=== PATIENT | female | born 1965 | race Caucasian/White ===

== ENCOUNTER 2016-12-23 04:32 | Observation (INO) | payer OTHER ==
--- NOTE | ~2016-12-23 | CN ---
Consultation Report [facility] [address] [place]. [address] NAME: ADRIANA ALONSO : 69 STATUS : ADM Humaira PAT#: [id number] AGE: 51 ADM/REG DATE : 12/23/16 MR#: [id number] REPORT SERV DATE: 12/23/16 DICTATED BY: SHERYL MONTELONGO DATE: 12/23/16 REPORT STATUS : Draft TRANSCRIBED BY: RASHEED DATE: 12/23/16 INPATIENT CONSULTATION NOTE DATE OF CONSULTATION: 12/23/2016 REASON FOR CONSULTATION: Possible UTI after surgery. HISTORY OF PRESENT ILLNESS: Ms Alonso is a 51-year-old white female, status post right laparoscopic nephrectomy on 12/14/2016 along with a hysterectomy by Dr. Siegel. She was discharged home last Saturday and actually had a great 24 hours, in fact, she may have gotten too active because on she began to experience increased right abdominal discomfort and bloating. She presented to the emergency department on 12/21/2016 and had a thorough evaluation including a CT of the abdomen and pelvis, which revealed postoperative changes in the area of the right renal fossa, but no other abnormal findings. She was discharged home from the emergency department, however, she did return late yesterday with persistent abdominal pain and failure to thrive. Urinalysis was infected appearing and she was started on Zosyn and vancomycin. Her urination has been normal except for a very small amount of hematuria, otherwise, there are no focal findings. She was admitted to the Hospitalist Service and Urology was consulted to assist with management of this patient. PAST MEDICAL HISTORY: Right renal cell carcinoma, status post nephrectomy; diabetes; morbid obesity; tobacco abuse; COPD; obstructive sleep apnea; chronic diastolic heart failure; and hypothyroidism. HOME MEDICATIONS: These have been reviewed and will not be repeated in the course of the dictation. ALLERGIES: NO KNOWN DRUG ALLERGIES. FAMILY HISTORY: No urologic issues. REVIEW OF SYSTEMS: Thorough review of systems has been reviewed by me, and if not noted to be positive in the history of present illness or past medical history, negative. SOCIAL HISTORY: . Smokes cigarettes. Denies illicit drug abuse. PHYSICAL EXAMINATION: Performed with Cayden as spanish medical interpreter. VITAL SIGNS: The patient is afebrile. Vital signs are stable. HEENT: Normocephalic and atraumatic. Eyes are anicteric. Nares are patent. Oropharynx is clear. NECK: Supple. HEART: Regular rate and rhythm. Consultation Report [place] [id number] [place]. [address] NAME: ADRIANA ALONSO : 69 STATUS : ADM Humaira PAT#: [id number] AGE: 51 ADM/REG DATE : 12/23/16 MR#: [id number] REPORT SERV DATE: 12/23/16 DICTATED BY: SHERYL MONTELONGO DATE: 12/23/16 REPORT STATUS : Draft TRANSCRIBED BY: MODL DATE: 12/23/16 LUNGS: Clear. ABDOMEN: Obese and soft. No rebound or guarding. Well-healing postoperative incisions, which are all open to air. She does have a very small area on her most left lateral incision which has a bit, but there is certainly no erythema or wound discharge. No CVA tenderness. No skin changes. INTEGUMENT: Warm. MUSCULOSKELETAL: Moves all extremities well. NEUROLOGIC: No focal deficits. PSYCHIATRIC: Pleasant and appropriate. LABS: Creatinine 1.07 and glucose 161. White blood cell count 13,200 and hematocrit 43.7. Urinalysis 178 white blood cells, 47 red blood cells, moderate leukocyte esterase, negative nitrite. Urine culture and blood culture are pending. The patient has been started on Zosyn and vancomycin, and also given a dose of Rocephin in the emergency department. ASSESSMENT: 1. Status post right nephrectomy for renal cell cancer. 2. Possible urinary tract infection. PLAN: The patient has been admitted to the hospital on the Hospitalist Service. I agree with empiric antibiotics while urine culture is pending. I reviewed the CT results and they do not appear to reveal any abnormalities additionally. Clinically, she states that she is better since her arriving a little over 12 hours ago, so I think conservative management is in line. We will follow up her urine culture and blood cultures, and Dr. Gautam will be back in the morning. RAC/LEEL Sheryl Montelongo M.D. / [id number] CC: MD Leopoldo Liu II, M.D. Jeffrey K. Mullins, MD
--- NOTE | ~2016-12-23 | DS ---
Discharge Summary [facility] [address] [place]. [address] NAME: ADRIANA ALONSO : 69 STATUS : DIS Humaira PAT#: [id number] AGE: 51 ADM/REG DATE : 12/23/16 MR#: [id number] REPORT SERV DATE: 12/25/16 DICTATED BY: TONE JACQUES DATE: 12/24/16 REPORT STATUS : Draft TRANSCRIBED BY: MODL DATE: 12/24/16 ADMISSION DATE: 12/23/2016 DISCHARGE DATE: 12/24/2016 REASON FOR ADMISSION: Abdominal pain. HISTORY OF PRESENT ILLNESS: Please refer to Dr. Fabian's history and physical dated 12/23/2016 for complete details regarding the patient's admission. In brief, the patient was admitted to the Hospitalist Service for observation for abdominal pain and urinary tract infection. HOSPITAL COURSE: The patient had an uncomplicated hospital course. She had a right radical nephrectomy by Dr. Gautam approximately on 12/14/2016, did very well postoperatively, she went home, but did not fill her prescriptions due to the outside pharmacy not having it stocked and returned to the ER with complaints of abdominal pain and urinary symptoms. Urinalysis was obtained, which grew out Klebsiella urinary tract infection. She had a CT scan of her abdomen and pelvis done on 12/22/2016 without any contrast, which showed evidence for recent nephrectomy on the right side. There are some minimal fluid changes in the right retroperitoneum. No evidence of definitive abscess. However, there is small fluid in the retroperitoneum. She presented with white blood cell count of initially 16,000 on 12/21/2016 and then went down to 13,000 on 12/23/2016. Lactate on admission was 1.4. Blood cultures were obtained, were no growth to date. The patient was started on vancomycin and Zosyn. Dr. Ramos was consulted, covering Dr. Gautam and recommended continuing IV antibiotics. The patient has been afebrile throughout the hospitalization. I assumed care of this patient on the day of discharge. Urine culture came back as being positive for Klebsiella, which was rand susceptible to the antibiotics listed. The patient was complaining of some abdominal pain. On reviewing her CAT scan, she does have considerable amount of gas and stool in her abdomen. Her white count is hovering about 14,000, but the patient is very nontoxic appearing and is requesting to go home. We will give her some laxatives and discharge her home in a stable condition to follow up Dr. Siegel and Dr. Gautam along with a prescription for Ceftin for a urinary tract infection. DISCHARGE DIAGNOSES: 1. Abdominal pain, could be secondary to gas and constipation. 2. Klebsiella urinary tract infection. 3. Recent radical nephrectomy by Dr. Gautam on 12/14/2016. 4. 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 PROCEDURES: Include CT scan of the abdomen and pelvis, consultation by Dr. Ramos. DISCHARGE MEDICATIONS: Include Ceftin 500 mg twice a day, estradiol 0.5 mg daily, gabapentin 1200 mg three times a day, insulin glargine 100 units subcutaneously twice a day, spironolactone 50 mg daily, Synthroid 25 mg every morning, Pulmicort daily, Humalog insulin daily, Percocet p.r.n. pain, Colace, Zanaflex, Lasix 20 mg p.r.n., Brovana noncompliant with Discharge Summary [address] [address] NAME: ADRIANA ALONSO : 69 STATUS : DIS Humaira PAT#: [id number] AGE: 51 ADM/REG DATE : 12/23/16 MR#: [id number] REPORT SERV DATE: 12/25/16 DICTATED BY: TONE JACQUES DATE: 12/24/16 REPORT STATUS : Draft TRANSCRIBED BY: MODL DATE: 12/24/16 and Valium 10 mg p.r.n. anxiety. The patient will follow up Dr. Siegel and Dr. Gautam in the next week or two. CHET/RASHEED Tone Jacques MD / [id number] CC: MD Leopoldo Liu II, M.D.
--- NOTE | ~2016-12-23 | HP ---
History And Physical [facility] [address] [place]. [address] NAME: ADRIANA ALONSO : 69 STATUS : ADM Humaira PAT#: [id number] AGE: 51 ADM/REG DATE : 12/23/16 MR#: [id number] REPORT SERV DATE: 12/23/16 DICTATED BY: USAMA ABURTO DATE: 12/23/16 REPORT STATUS : Draft TRANSCRIBED BY: MODNora DATE: 12/23/16 DATE OF ADMISSION: 12/23/2016 CHIEF COMPLAINT: Abdominal pain. Recent nephrectomy. HISTORY OF PRESENT ILLNESS: This is a 51-year-old female, who presents to the emergency room at [facility] with the above-mentioned complaint. History is obtained from the patient, reviewing data available on the [email or web address] system, and speaking with the ER physician as well. According to the patient and available data, she had a right nephrectomy done by Dr. Gautam on 12/14/2016 for a right renal mass. She was doing well postoperatively but yesterday, she had presented to this emergency room and was diagnosed with urinary tract infection. She also had pain in the incision area where she had the surgery. She was advised inpatient IV antibiotic treatment but left against medical advice because she had something important to do. She went home, did not fill her prescription due to the outside pharmacy not having it in stock, but returns today with similar complaints of abdominal pain and urinary symptoms. She once again had urinary tract infection along with leukocytosis and the abdominal pain in the incisional area. Hospitalist Service is asked to admit her for further evaluation and treatment. At the time of my evaluation, she denied any chest pain, palpitations, or orthopnea. She had no cough, hemoptysis, night sweats, or weight loss. She has not had any recent falls or loss of consciousness. No history of recent fevers, chills, nausea, vomiting, or diarrhea. She denied any hematemesis or hematochezia. No other history of recent travel or exposures other than those mentioned above. PAST MEDICAL HISTORY: Significant for history of right renal mass for which she underwent nephrectomy by Dr. Gautam on 12/14/2016. She has a history of COPD, obstructive sleep apnea, and obesity. She also has chronic diastolic heart failure and hypothyroidism. SOCIAL HISTORY: She has about 70-to-80 pack-a-year history of smoking, continues to do so. Denies any alcohol use or recreational drug use. She used to work in factories. FAMILY HISTORY: Noncontributory. MEDICATIONS: At home were reviewed by me in the chart today and reordered by me. REVIEW OF SYSTEMS: As in history of present illness. All other systems were reviewed in detail and quite unremarkable. PHYSICAL EXAMINATION: GENERAL: This is a very pleasant 51-year-old obese patient, who is not in any acute distress. She does have abdominal pain at the site of the surgery. She is alert, awake, oriented to time, place, and person. History And Physical [address] [place]. [address] NAME: ADRIANA ALONSO : 69 STATUS : ADM Humaira PAT#: [id number] AGE: 51 ADM/REG DATE : 12/23/16 MR#: [id number] REPORT SERV DATE: 12/23/16 DICTATED BY: USAMA ABURTO DATE: 12/23/16 REPORT STATUS : Draft TRANSCRIBED BY: RASHEED DATE: 12/23/16 HEENT: Pupils are equal, reacting to light and accommodating. External ocular muscles are intact. Membranes are moist and pink. Sclerae are nonicteric. NECK: Supple with no jugular venous distention, lymphadenopathy, or thyromegaly. LUNGS: Clear to auscultation with no wheezes, rubs, or crackles. HEART: Heart sounds were regular with no murmurs, rubs, or gallops. ABDOMEN: Soft, nontender. There is pain in the incisional area. Bowel sounds are present. EXTREMITIES: Showed no cyanosis, clubbing, or edema. NEUROLOGIC: Grossly intact. No focal sensory or motor deficits. Higher functions appeared intact. VITAL SIGNS: Her temperature was 97 degrees Fahrenheit, pulse 71, respirations 20 a minute, blood pressure was 135/67, and oxygen saturations were 96%, breathing 2 L of oxygen via nasal cannula. LABORATORY DATA: Reviewed on the [email or web address] system showed a normal CMP with a blood glucose of 161. Lactate was 1.4 today. [place] [address], hemoglobin 13.5 with a hematocrit of 43.7, and platelet count was 320,000. Urinalysis showed large blood, moderate leukocyte esterase. There were 178 wbc's and rare bacteria. Films of the chest x- ray were reviewed by me on the PACS today and interpreted by me. There is normal bony architecture with no lobar consolidations, pleural effusions seen in the lung windows. Films of the CT scan of her abdomen and pelvis done on 12/21/2016 were reviewed by me on the PACS today and official radiology comments were also reviewed. There is a small fluid collection postoperatively after her nephrectomy. A 12-lead EKG done in emergency room was reviewed and interpreted by me. There is sinus rhythm with premature ventricular complex. Rate is about 72 per minute. IMPRESSION: 1. Abdominal pain. 2. Urinary tract infection. 3. Leukocytosis. 4. Right nephrectomy for renal mass done by Dr. Gautam. 5. Diabetes mellitus type 2. 6. Chronic obstructive pulmonary disease. 7. Hypothyroidism. 8. Obstructive sleep apnea. 9. Chronic diastolic heart failure. 10.Obesity. 11.Tobacco use. PLAN: We will admit Ms. Alonso to the Hospitalist Service for a 24-hour observation period. After cultures are drawn, we will start her on empiric IV antibiotics and cover her for nosocomial infections as well. Meanwhile, we will start her on NovoLog, given subcutaneously per sliding scale for blood sugar control as well. We will check her thyroid function and meanwhile continue her replacement therapy. We will also be checking her A1c. We will offer pain control with morphine intravenously on an as needed basis. She will be on IV fluids for volume replacement and the bronchodilator treatments and supplemental oxygen therapy as well. She will be on unfractionated heparin for DVT prophylaxis while here. History And Physical [address] [address] NAME: ADRIANA ALONSO : 69 STATUS : ADM Humaira PAT#: [id number] AGE: 51 ADM/REG DATE : 12/23/16 MR#: [id number] REPORT SERV DATE: 12/23/16 DICTATED BY: USAMA ABURTO DATE: 12/23/16 REPORT STATUS : Draft TRANSCRIBED BY: MODL DATE: 12/23/[address] Gautam to consult on her and advice regarding the abdominal pain. I have discussed above plans with the patient and her questions were answered. She is agreeable to the above recommendations. Hospitalist Service will be following her during her stay here. /RASHEED Usama Aburto M.D. / [id number] CC: MD Leopoldo Liu II, M.D.
[~2016-12-23 04:32] MED LIST: *UNABLE2; *UNABLE3; ADVAIR INH; ADVAIR250 INH; BACDS PO; BROVANA 15 MCG/2 ML INH; BROVANA15 MCG INH; BUM2 PO; COMBIVENT INH; COMBIVENT RESPIM4 GM INH; DSS PO; DUONEB INH; ENDOCET1 TA1; ENDOCET1 TA3 PO; ESTRACE0.5 MG PO; ESTRADIOL2 MG PO; FOLIC PO; HUMALOG; HUMALOG SC; L20; L20 PO; LANTUS SC; LANTUS SQ; LEVOTHYROXIN25 MCG PO; MICRO-K10 MEQ PO; MOBIC15 MG PO; MOBIC7.5 PO; MULTIVIT/MIN PO; NEUR300; NEUR300 PO; NEUR600 PO; NITROQUICK0.4 MG SL; NITROSTAT0.4 MG SL; NORCO1 TA1; NORCO1 TA1 PO; NTG150 SL; PERCOCET 10/3251 TAB PO; PERCOCET1 TA4 PO; PR25; PROVENTSOL INH; PULRESP.5 INH; PULRESP1 INH; ROXICODONE15 MG PO; SILVADENE CREAM 1% TOP; SPIRO50 PO; SYN.025B PO; T PO; T3 PO; VALIUM10 MG PO; ZANAFLEX 4 MG TA4 MG PO; ZOFRAN4; ZOFRAN8 PO
[2016-12-23 04:51] LABS: BASOPHILS 0.5 %; BASOPHILS ABSOLUTE 0.07 10/3/uL (0.0-0.16); EOSINOPHILS 3.9 %; EOSINOPHILS ABSOLUTE 0.52 10/3/uL (0.0-0.53); ER CBC TAT 0 Hrs 14 Mins; HEMATOCRIT 43.7 % (36.0-48.0); HEMOGLOBIN 13.5 g/dL (12.0-16.0); IMMATURE GRANULOCYTES 0.7 %; IMMATURE GRANULOCYTES ABSOLUTE 0.09 10/3/uL (0.0-0.11); LYMPHOCYTES 15.2 %; LYMPHOCYTES ABSOLUTE 2.01 10/3/uL (0.67-4.30); MEAN CORPUS HGB CONC 30.9 g/dL (32.0-36.0); MEAN CORPUSCULAR HEMOGLOB 30.1 pg (26.0-34.0); MEAN CORPUSCULAR VOLUME 97.5 fL (80-100); MEAN PLATELET VOLUME 9.4 fL (9.2-13.0); MONOCYTES 5.4 %; MONOCYTES ABSOLUTE 0.72 10/3/uL (0.21-1.20); NEUTROPHILS 74.3 %; NEUTROPHILS ABSOLUTE 9.81 10/3/uL (2.02-8.40); PLATELET COUNT 320 10/3/uL (150-400); RBC DISTRIBUTION WIDTH 15.2 % (12.0-16.0); RED CELL COUNT 4.48 10/6/uL (4.0-5.6); WHITE BLOOD CELLS 13.2 10/3/uL (4.5-10.5)
[2016-12-23 04:53] LABS: MANUAL DIFF NO %
[2016-12-23 04:55] LABS: ASCORBIC ACID (UR NOT ORDER) NEG (NEG); BILIRUBIN, URINE NEGATIVE (NEG); ER URINALYSIS TAT 0 Hrs 00 Mins; KETONE, URINE NEGATIVE (NEG); LEUKOCYTE ESTERASE(NOT OR MOD (NEG); NITRITE (URINE) NEG (NEG); WBC (NOT ORDERED) (RFLEX) 178 (0-5)
[2016-12-23 05:06] LABS: LACTATE 1.4 MMOL/L (0.3-2.4)
[2016-12-23 05:09] LABS: A/G RATIO 0.6 (0.7-1.9); ALBUMIN 2.9 G/DL (3.5-5.0); ALKALINE PHOSPHATASE 88 U/L (45-117); CALCIUM, SERUM 8.9 MG/DL (8.5-10.4); CHLORIDE, SERUM 106 MMOL/L (96-112); CO2 (CARBON DIOXIDE) 28 MMOL/L (24-34); CREATININE 1.07 MG/DL (0.55-1.02); GFR AFRICAN AMERICAN 71 ML/MIN (>=60); GFR NON AFRICAN AMERICAN 61 ML/MIN (>=60); GLOBULIN 4.7 G/DL (2.5-4.1); GLUCOSE, SERUM 161 MG/DL (60-99); SGOT(AST) 9 U/L (5-40); SGPT(ALT) 18 U/L (5-65); SODIUM, SERUM 143 MMOL/L (135-148); TOTAL BILIRUBIN 0.5 MG/DL (0-1.2); TOTAL PROTEIN 7.6 G/DL (6.0-8.5)
[2016-12-23 05:12] LABS: BUN (BLOOD UREA NITROGEN) 10 MG/DL (6-23)
[2016-12-23 07:57] LABS: PROCALCITONIN 0.05 ng/mL (<0.5)
[2016-12-24 05:48] LABS: BASOPHILS 0.5 %; BASOPHILS ABSOLUTE 0.08 10/3/uL (0.0-0.16); EOSINOPHILS 3.9 %; EOSINOPHILS ABSOLUTE 0.57 10/3/uL (0.0-0.53); HEMATOCRIT 44.2 % (36.0-48.0); HEMOGLOBIN 13.3 g/dL (12.0-16.0); IMMATURE GRANULOCYTES 0.5 %; IMMATURE GRANULOCYTES ABSOLUTE 0.08 10/3/uL (0.0-0.11); LYMPHOCYTES 24.4 %; LYMPHOCYTES ABSOLUTE 3.57 10/3/uL (0.67-4.30); MEAN CORPUS HGB CONC 30.1 g/dL (32.0-36.0); MEAN CORPUSCULAR HEMOGLOB 29.6 pg (26.0-34.0); MEAN CORPUSCULAR VOLUME 98.4 fL (80-100); MEAN PLATELET VOLUME 9.2 fL (9.2-13.0); MONOCYTES 6.2 %; MONOCYTES ABSOLUTE 0.91 10/3/uL (0.21-1.20); NEUTROPHILS 64.5 %; NEUTROPHILS ABSOLUTE 9.44 10/3/uL (2.02-8.40); PLATELET COUNT 352 10/3/uL (150-400); RBC DISTRIBUTION WIDTH 15.2 % (12.0-16.0); RED CELL COUNT 4.49 10/6/uL (4.0-5.6); WHITE BLOOD CELLS 14.7 10/3/uL (4.5-10.5)
[2016-12-24 06:05] LABS: MANUAL DIFF NO %
[2016-12-24 06:06] LABS: BUN (BLOOD UREA NITROGEN) 13 MG/DL (6-23); CHLORIDE, SERUM 105 MMOL/L (96-112); CO2 (CARBON DIOXIDE) 30 MMOL/L (24-34); CREATININE 1.19 MG/DL (0.55-1.02); GFR AFRICAN AMERICAN 62 ML/MIN (>=60); GFR NON AFRICAN AMERICAN 54 ML/MIN (>=60); GLUCOSE, SERUM 57 MG/DL (60-99); PHOSPHORUS, SERUM 4.5 MG/DL (2.5-4.5); POTASSIUM, SERUM 3.9 MMOL/L (3.5-5.3); SODIUM, SERUM 144 MMOL/L (135-148)
[2016-12-24] MEDS ORDERED: CEFT5 PO (14:16)
[2017-05-24] MEDS ORDERED: ADVAIR250 INH (13:03)
[2017-05-24] MEDS ORDERED: COMBIVENT RESPIM4 GM PO (13:04)
[2017-05-24] MEDS ORDERED: XANAX1 MG PO (13:04)
[2017-05-24] MEDS ORDERED: ASAB PO (13:05)
[2017-05-24] MEDS ORDERED: CYMBALTA60 PO (13:05)
[2017-05-24] MEDS ORDERED: ESTRADIOL2 MG PO (13:05)
[2017-05-24] MEDS ORDERED: L40 PO (13:06)
[2017-05-24] MEDS ORDERED: NEUR300 PO (13:06)
[2017-05-24] MEDS ORDERED: HUMALOG SC (13:06)
[2017-05-24] MEDS ORDERED: LANTUS SC (13:07)
[2017-05-24] MEDS ORDERED: DUONEB INH (13:07)
[2017-05-24] MEDS ORDERED: LEVOTHROID25 MCG PO (13:07)
[2017-05-24] MEDS ORDERED: NITROSTAT0.4 MG SL (13:08)
[2017-05-24] MEDS ORDERED: ZOFRAN8 PO (13:08)
[2017-05-24] MEDS ORDERED: MOBIC7.5 PO (13:08)
[2017-05-24] MEDS ORDERED: PERCOCET 10/3251 TAB PO (13:09)
[2017-05-24] MEDS ORDERED: KDUR10 PO (13:09)
[2017-05-24] MEDS ORDERED: ZANAFLEX 4 MG TA4 MG PO (13:09)
[2017-05-24] MEDS ORDERED: P125 PO (13:09)
[2017-05-24] MEDS ORDERED: SPIRO50 PO (13:09)
[2017-05-24] MEDS ORDERED: MSCONT15 PO (13:14)
[2017-06-23] MEDS ORDERED: P125 PO (18:58)
[2017-06-23] MEDS ORDERED: IBU-200200 MG PO (19:00)
[2017-06-26] MEDS ORDERED: K250 PO (15:46)
[2017-06-26] MEDS ORDERED: INSNOV7030 SC ×2 (15:50→15:52)
[2017-06-26] MEDS ORDERED: AZO-STANDARD95 MG PO (15:55)
== END 2016-12-24 14:54 | disposition home or self-care (01) ==
LOC: ER 04:32 → ER/OF 06:24 → CDU1 06:28 → CDU2 07:13
PROVIDERS: Internal Medicine Pulmonary Disease; Specialist
DX: K59.00 Constipation, unspecified (principal); R14.3 Flatulence; N39.0 Urinary tract infection, site not specified; B96.1 Klebsiella pneumoniae [K. pneumoniae] as the cause of diseases classified elsewhere; G47.33 Obstructive sleep apnea (adult) (pediatric); I50.32 Chronic diastolic (congestive) heart failure; E03.9 Hypothyroidism, unspecified; F17.210 Nicotine dependence, cigarettes, uncomplicated; D72.829 Elevated white blood cell count, unspecified; E66.01 Morbid (severe) obesity due to excess calories; M19.90 Unspecified osteoarthritis, unspecified site; F41.9 Anxiety disorder, unspecified; E11.40 Type 2 diabetes mellitus with diabetic neuropathy, unspecified; J44.9 Chronic obstructive pulmonary disease, unspecified; Z90.5 Acquired absence of kidney; Z90.710 Acquired absence of both cervix and uterus; Z79.899 Other long term (current) drug therapy; Z79.4 Long term (current) use of insulin; Z88.8 Allergy status to other drugs, medicaments and biological substances; Z87.442 Personal history of urinary calculi; Z98.890 Other specified postprocedural states
CPT/HCPCS: 71010; 80048; 80053; 81001; 82962; 83036; 83605; 83735; 84100; 84145; 84443; 85025; 87040; 87086; 93005; 94640; 96372; 96374; 96375; 96376; 99285; A9270-GY; G0378; J2543; J3370

== ENCOUNTER 2017-03-11 22:18 | Inpatient (IN) | payer OTHER ==
--- NOTE | ~2017-03-11 | HP ---
History And Physical [place] [id number] [facility]. [address] NAME: ADRIANA ALONSO : 69 STATUS : ADM IN [facility]#: [id number] AGE: 51 ADM/REG DATE : 03/12/17 MR#: [id number] REPORT SERV DATE: 03/12/17 DICTATED BY: TONE JACQUES DATE: 03/12/17 REPORT STATUS : Draft TRANSCRIBED BY: MODNora DATE: 03/12/17 DATE OF ADMISSION: 03/12/2017 REASON FOR ADMISSION: Pyelonephritis and lactic acidosis. CHIEF COMPLAINT: "I have been having right-sided abdominal pain." HISTORY OF PRESENT ILLNESS: A 51-year-old white female with morbid obesity, obstructive sleep apnea, recently diagnosed with endometrioid type endometrial carcinoma with a right renal mass, status post laparoscopic hysterectomy with bilateral salpingo-oophorectomy and extensive lysis of adhesions, on 12/[address] Siegel along with a right nephrectomy performed by Dr. Gautam. The patient was hospitalized in early December with similar complaints diagnosed with Klebsiella urinary tract infection. She was discharged with some oral antibiotics. She returns today with complaints of right-sided abdominal pain. Per the ER note, it says that she has been having worsening pain for the past couple of days, but she reports that she has been having this right-sided pain ongoing since prior to surgery. She does note foul-smelling urine and some dysuria, which is new for her. She has not been on any recent antibiotics. She denies any coughing, shortness of breath, fever, chills, nausea, vomiting. In the ER, she was given a liter bolus, a dose of Rocephin; urine cultures and blood cultures were obtained; concern for sepsis; hospice was asked to admit for further evaluation. REVIEW OF SYSTEMS: As per HPI. Otherwise, 10-point system were reviewed and are negative. PAST MEDICAL HISTORY: Right renal mass, status post right nephrectomy by Dr. Gautam 12/14; endometrioid type endometrial carcinoma, status post laparoscopic hysterectomy by Dr. Siegel; COPD; obstructive sleep apnea; morbid obesity; chronic diastolic heart failure; hypothyroidism; chronic pain dependent on narcotics. PAST SURGICAL HISTORY: x3, right nephrectomy, and laparoscopic hysterectomy with bilateral salpingo-oophorectomy. FAMILY HISTORY: Grandmother with colon cancer and two aunts with lung cancer. SOCIAL HISTORY: 70- to 80-pack year history of smoking, continues to do so. Denies any IV drug use, alcohol, or recreational drugs. She used to work in a factory. ALLERGIES: ADVERSE REACTIONS TO TORADOL AND LYRICA. MEDICATIONS: Include DuoNebs p.r.n., Pulmicort 0.5 mg twice a day, Ceftin 500 mg twice a day, Valium 10 mg twice a day p.r.n., Colace 100 mg p.r.n., Estrace 0.5 mg p.r.n., Lasix 40 mg p.r.n. swelling, Neurontin 1200 mg three times a day, insulin glargine 100 units twice a day, lispro sliding scale, Synthroid 25 mcg every morning, meloxicam 10 mg daily, MS Contin 15 mg every 12 hours, Percocet 10/325 one or two tabs every four hours p.r.n. pain, Aldactone 50 mg every day, Zanaflex 4 mg three times a day p.r.n., Brovana p.r.n., Silvadene History And Physical [address] [address] NAME: ADRIANA ALONSO : 69 STATUS : ADM IN [facility]#: [id number] AGE: 51 ADM/REG DATE : 03/12/17 MR#: [id number] REPORT SERV DATE: 03/12/17 DICTATED BY: TONE JACQUES DATE: 03/12/17 REPORT STATUS : Draft TRANSCRIBED BY: RASHEED DATE: 03/12/17 p.r.n. PHYSICAL EXAMINATION: VITAL SIGNS: On exam, saturating 93% on room air, temperature is 98.3, pulse is 68. GENERAL: She is no acute distress. Alert and oriented x3. She is pleasant, slightly groggy, but able to give me an accurate history. HEENT: Normocephalic and atraumatic head. Extraocular muscles intact. Oropharynx clear. NECK: Supple. No JVD. CARDIAC: Regular rhythm. No murmurs, rubs, or gallops. PULMONARY: Diminished breath sounds throughout, otherwise clear. ABDOMEN: Obese, soft, nontender, nondistended. Positive bowel sounds. : There is some right CVA tenderness. EXTREMITIES: Show no clubbing, cyanosis, or edema. NEUROLOGIC: No focal deficits. SKIN: Warm and dry. PSYCHIATRIC: The patient is cooperative. Mood is appropriate. LABORATORY DATA: Labs show a white blood cell count 13.7, no bandemia. CMP: Creatinine 1.54. LFTs and lipase are normal. Lactic acid is 2.5. UA shows 13 white blood cells, rare bacteria, some hyaline casts, small leukocyte esterase. CT scan of the abdomen and pelvis without contrast shows postsurgical changes from right nephrectomy minimally thickened appearance of the urinary bladder likely due to underdistention, possibly cystitis, mild colonic diverticulosis. IMPRESSION: 1. Probable pyelonephritis. 2. Lactic acidosis. 3. Morbid obesity. 4. Acute kidney injury. 5. Uncontrolled diabetes, insulin dependent. 6. Endometrioid type endometrial cancer. 7. Status post nephrectomy. 8. Chronic obstructive pulmonary disease. PLAN: The plan is to do IV fluids. We will continue Rocephin. Will follow up a urine culture, blood culture. We will check a procalcitonin and lactic acid. Likely home in two days once urine cultures are finalized. Please note that right-sided abdominal pain could also be due to adhesions as part of the differential. CHET/RASHEED Tone Jacques MD / [id number] History And Physical [address] [address] NAME: ADRIANA ALONSO : 69 STATUS : ADM IN [facility]#: [id number] AGE: 51 ADM/REG DATE : 03/12/17 MR#: [id number] REPORT SERV DATE: 03/12/17 DICTATED BY: TONE JACQUES DATE: 03/12/17 REPORT STATUS : Draft TRANSCRIBED BY: MODL DATE: 03/12/17 CC: Shaista Tse MD Stephen Depasquale, M.D.
--- NOTE | ~2017-03-11 | DS ---
Discharge Summary [facility] [address] [place]. [address] NAME: ADRIANA ALONSO : 69 STATUS : DIS IN PAT#: [id number] AGE: 51 ADM/REG DATE : 03/12/17 MR#: [id number] REPORT SERV DATE: 03/16/17 DICTATED BY: TONE JACQUES DATE: 03/15/17 REPORT STATUS : Draft TRANSCRIBED BY: MODNora DATE: 03/15/17 ADMISSION DATE: 03/12/2017 DISCHARGE DATE: 03/15/2017 REASON FOR ADMISSION: Pyelonephritis, lactic acidosis. HISTORY OF PRESENT ILLNESS: Please refer to my history and physical dated 03/12/2017 for complete details regarding the patient's admission. In brief, the patient was admitted to the Hospitalist Service for management of her pyelonephritis and lactic acidosis. HOSPITAL COURSE: The patient had an uncomplicated hospital course. She was diagnosed with pyelonephritis. She has a history of endometrial carcinoma and renal cell carcinoma status post resection by Dr. Gautam and Dr. Siegel. She has frequent UTIs. Urinalysis was performed in the ER and urine culture came back showing 100,000 colonies of mixed bacteria. She was started on Rocephin and had tolerated the medication very well. She has now been switched over to Ceftin. On 03/14/2017, she started having some left-sided chest pain. She certainly has some risk factors given her chronic medical conditions, her obesity and family history. Troponin was drawn and was negative. EKG showed T-wave inversions, however, it was unchanged since December. She had a cardiac PET scan which was difficult to interpret and a poor study given her body habitus, but did show some moderate risk after further talking to Dr. Korey Neal about the results. It was felt that she did not need any further testing during this hospitalization. The patient has been chest pain free for over 24 hours. She continues to have this right-sided flank pain, which could be secondary to adhesions or constipation, but the patient has reached maximal hospitalization, stable for discharge. DISCHARGE DIAGNOSES: Atypical chest pain, now resolved; pyelonephritis, resolved; morbid obesity with obstructive sleep apnea, now resolved; acute kidney injury, resolved; lactic acidosis, resolved; type 2 diabetes; endometrial carcinoma; and renal cell cancer, status post resection. PROCEDURES: Include cardiac PET scan and CT scan of the abdomen and pelvis without contrast. DISCHARGE MEDICATIONS: Include Cymbalta 60 mg every morning, gabapentin 1200 mg three times a day, insulin glargine 80 units twice a day, Synthroid 25 mcg every morning, meloxicam 7.5 mg every morning, insulin lispro sliding scale, Percocet one tab four times a day, Zanaflex 4 mg three times a day p.r.n., Pulmicort twice a day, Brovana twice a day, DuoNeb daily p.r.n., spironolactone 50 mg daily, diazepam 10 mg twice a day p.r.n., MS Contin 15 mg every 12 hours, Lasix 40 mg p.r.n. swelling, Advair one puff every morning, nitroglycerin p.r.n. chest pain, Zofran p.r.n. nausea, and Ceftin 500 mg twice a day for five more days. The patient was discharged in a stable condition. I spent over 30 minutes discharge planning and coordination of care on Ms. Alonso. Discharge Summary [address] [address] NAME: ADRIANA ALONSO : 69 STATUS : DIS IN PAT#: [id number] AGE: 51 ADM/REG DATE : 03/12/17 MR#: [id number] REPORT SERV DATE: 03/16/17 DICTATED BY: TONE JACQUES DATE: 03/15/17 REPORT STATUS : Draft TRANSCRIBED BY: RASHEED DATE: 03/15/17 CHET/RASHEED Tone Jacques MD / [id number] CC: MD Lawrence Busby M.D. Jeffrey K. Mullins, MD
[~2017-03-11 22:18] MED LIST changes: +CEFT5 PO
[2017-03-11 23:23] LABS: BASOPHILS 0.5 %; BASOPHILS ABSOLUTE 0.07 10/3/uL (0.0-0.16); EOSINOPHILS 3.6 %; EOSINOPHILS ABSOLUTE 0.49 10/3/uL (0.0-0.53); ER CBC TAT 0 Hrs 07 Mins; HEMATOCRIT 48.6 % (36.0-48.0); HEMOGLOBIN 15.3 g/dL (12.0-16.0); IMMATURE GRANULOCYTES 0.6 %; IMMATURE GRANULOCYTES ABSOLUTE 0.08 10/3/uL (0.0-0.11); LYMPHOCYTES 18.9 %; LYMPHOCYTES ABSOLUTE 2.59 10/3/uL (0.67-4.30); MEAN CORPUS HGB CONC 31.5 g/dL (32.0-36.0); MEAN CORPUSCULAR HEMOGLOB 30.5 pg (26.0-34.0); MEAN PLATELET VOLUME 10.1 fL (9.2-13.0); MONOCYTES 4.8 %; MONOCYTES ABSOLUTE 0.66 10/3/uL (0.21-1.20); NEUTROPHILS 71.6 %; NEUTROPHILS ABSOLUTE 9.81 10/3/uL (2.02-8.40); PLATELET COUNT 288 10/3/uL (150-400); RBC DISTRIBUTION WIDTH 15.3 % (12.0-16.0); RED CELL COUNT 5.01 10/6/uL (4.0-5.6); WHITE BLOOD CELLS 13.7 10/3/uL (4.5-10.5)
[2017-03-11 23:26] LABS: MANUAL DIFF NO %
[2017-03-11 23:29] LABS: ASCORBIC ACID (UR NOT ORDER) NEG (NEG); BILIRUBIN, URINE NEGATIVE (NEG); ER URINALYSIS TAT 0 Hrs 00 Mins; KETONE, URINE TRACE MG/DL (NEG); LEUKOCYTE ESTERASE(NOT OR SMALL (NEG); NITRITE (URINE) NEG (NEG); WBC (NOT ORDERED) (RFLEX) 13 (0-5)
[2017-03-11 23:39] LABS: A/G RATIO 0.8 (0.7-1.9); ALBUMIN 3.3 G/DL (3.5-5.0); ALKALINE PHOSPHATASE 103 U/L (45-117); BUN (BLOOD UREA NITROGEN) 17 MG/DL (6-23); CALCIUM, SERUM 9.4 MG/DL (8.5-10.4); CHLORIDE, SERUM 98 MMOL/L (96-112); CO2 (CARBON DIOXIDE) 32 MMOL/L (24-34); CREATININE 1.54 MG/DL (0.55-1.02); GFR AFRICAN AMERICAN 45 ML/MIN (>=60); GFR NON AFRICAN AMERICAN 39 ML/MIN (>=60); GLOBULIN 4.4 G/DL (2.5-4.1); GLUCOSE, SERUM 306 MG/DL (60-99); POTASSIUM, SERUM 4.3 MMOL/L (3.5-5.3); SGOT(AST) 8 U/L (5-40); SGPT(ALT) 20 U/L (5-65); SODIUM, SERUM 140 MMOL/L (135-148); TOTAL BILIRUBIN 0.2 MG/DL (0-1.2); TOTAL PROTEIN 7.7 G/DL (6.0-8.5)
[2017-03-12 03:38] LABS: LACTATE 2.5 MMOL/L (0.3-2.4)
[2017-03-12] MEDS ORDERED: MSCONT15 PO (04:51)
[2017-03-12] MEDS ORDERED: MOBIC7.5 PO (04:52)
[2017-03-12] MEDS ORDERED: L40 PO (08:06)
[2017-03-12] MEDS ORDERED: ADVAIR250 INH (08:12)
[2017-03-12] MEDS ORDERED: CYMBALTA60 PO (08:13)
[2017-03-12] MEDS ORDERED: COMBIVENT RESPIM4 GM INH (08:13)
[2017-03-12] MEDS ORDERED: ZOFRAN8 PO (08:14)
[2017-03-12] MEDS ORDERED: NITROSTAT0.4 MG SL (08:14)
[2017-03-13 06:24] LABS: BUN (BLOOD UREA NITROGEN) 19 MG/DL (6-23); CALCIUM, SERUM 9.2 MG/DL (8.5-10.4); CHLORIDE, SERUM 101 MMOL/L (96-112); CO2 (CARBON DIOXIDE) 35 MMOL/L (24-34); CREATININE 1.13 MG/DL (0.55-1.02); GFR AFRICAN AMERICAN 66 ML/MIN (>=60); GFR NON AFRICAN AMERICAN 57 ML/MIN (>=60); PHOSPHORUS, SERUM 4.2 MG/DL (2.5-4.5); POTASSIUM, SERUM 4.4 MMOL/L (3.5-5.3); SODIUM, SERUM 140 MMOL/L (135-148)
[2017-03-13 06:26] LABS: BASOPHILS 0.3 %; BASOPHILS ABSOLUTE 0.03 10/3/uL (0.0-0.16); EOSINOPHILS 3.5 %; EOSINOPHILS ABSOLUTE 0.39 10/3/uL (0.0-0.53); GLUCOSE, SERUM 141 MG/DL (60-99); HEMATOCRIT 48.5 % (36.0-48.0); IMMATURE GRANULOCYTES 0.4 %; IMMATURE GRANULOCYTES ABSOLUTE 0.04 10/3/uL (0.0-0.11); LYMPHOCYTES 16.1 %; MANUAL DIFF NO %; MEAN CORPUS HGB CONC 30.9 g/dL (32.0-36.0); MEAN CORPUSCULAR HEMOGLOB 30.1 pg (26.0-34.0); MEAN CORPUSCULAR VOLUME 97.2 fL (80-100); MEAN PLATELET VOLUME 9.9 fL (9.2-13.0); MONOCYTES 4.3 %; MONOCYTES ABSOLUTE 0.48 10/3/uL (0.21-1.20); NEUTROPHILS 75.4 %; NEUTROPHILS ABSOLUTE 8.43 10/3/uL (2.02-8.40); PLATELET COUNT 268 10/3/uL (150-400); RBC DISTRIBUTION WIDTH 15.2 % (12.0-16.0); RED CELL COUNT 4.99 10/6/uL (4.0-5.6); WHITE BLOOD CELLS 11.2 10/3/uL (4.5-10.5)
[2017-03-14 07:20] LABS: BASOPHILS 0.4 %; BASOPHILS ABSOLUTE 0.04 10/3/uL (0.0-0.16); EOSINOPHILS 3.3 %; EOSINOPHILS ABSOLUTE 0.36 10/3/uL (0.0-0.53); HEMATOCRIT 47.1 % (36.0-48.0); IMMATURE GRANULOCYTES 0.6 %; IMMATURE GRANULOCYTES ABSOLUTE 0.06 10/3/uL (0.0-0.11); LYMPHOCYTES 20.4 %; LYMPHOCYTES ABSOLUTE 2.21 10/3/uL (0.67-4.30); MANUAL DIFF NO %; MEAN CORPUS HGB CONC 31.8 g/dL (32.0-36.0); MEAN CORPUSCULAR HEMOGLOB 30.4 pg (26.0-34.0); MEAN CORPUSCULAR VOLUME 95.3 fL (80-100); MEAN PLATELET VOLUME 9.4 fL (9.2-13.0); MONOCYTES 4.8 %; MONOCYTES ABSOLUTE 0.52 10/3/uL (0.21-1.20); NEUTROPHILS 70.5 %; NEUTROPHILS ABSOLUTE 7.64 10/3/uL (2.02-8.40); PLATELET COUNT 241 10/3/uL (150-400); RBC DISTRIBUTION WIDTH 15.4 % (12.0-16.0); RED CELL COUNT 4.94 10/6/uL (4.0-5.6); WHITE BLOOD CELLS 10.8 10/3/uL (4.5-10.5)
[2017-03-14 07:35] LABS: BUN (BLOOD UREA NITROGEN) 22 MG/DL (6-23); CALCIUM, SERUM 9.8 MG/DL (8.5-10.4); CHLORIDE, SERUM 104 MMOL/L (96-112); CO2 (CARBON DIOXIDE) 35 MMOL/L (24-34); CREATININE 1.21 MG/DL (0.55-1.02); GFR AFRICAN AMERICAN 61 ML/MIN (>=60); GFR NON AFRICAN AMERICAN 52 ML/MIN (>=60); GLUCOSE, SERUM 117 MG/DL (60-99); PHOSPHORUS, SERUM 4.5 MG/DL (2.5-4.5); POTASSIUM, SERUM 5.3 MMOL/L (3.5-5.3); SODIUM, SERUM 144 MMOL/L (135-148)
[2017-03-15 08:06] LABS: BASOPHILS 0.3 %; BASOPHILS ABSOLUTE 0.04 10/3/uL (0.0-0.16); EOSINOPHILS 3.4 %; EOSINOPHILS ABSOLUTE 0.42 10/3/uL (0.0-0.53); HEMATOCRIT 48.7 % (36.0-48.0); HEMOGLOBIN 15.1 g/dL (12.0-16.0); IMMATURE GRANULOCYTES 0.4 %; IMMATURE GRANULOCYTES ABSOLUTE 0.05 10/3/uL (0.0-0.11); LYMPHOCYTES 17.3 %; LYMPHOCYTES ABSOLUTE 2.11 10/3/uL (0.67-4.30); MANUAL DIFF NO %; MEAN CORPUSCULAR HEMOGLOB 30.1 pg (26.0-34.0); MEAN PLATELET VOLUME 9.4 fL (9.2-13.0); MONOCYTES 5.4 %; MONOCYTES ABSOLUTE 0.66 10/3/uL (0.21-1.20); NEUTROPHILS 73.2 %; NEUTROPHILS ABSOLUTE 8.95 10/3/uL (2.02-8.40); PLATELET COUNT 254 10/3/uL (150-400); RBC DISTRIBUTION WIDTH 15.2 % (12.0-16.0); RED CELL COUNT 5.02 10/6/uL (4.0-5.6); WHITE BLOOD CELLS 12.2 10/3/uL (4.5-10.5)
[2017-03-15 08:58] LABS: BUN (BLOOD UREA NITROGEN) 19 MG/DL (6-23); CHLORIDE, SERUM 104 MMOL/L (96-112); CREATININE 1.12 MG/DL (0.55-1.02); GFR AFRICAN AMERICAN 67 ML/MIN (>=60); GFR NON AFRICAN AMERICAN 58 ML/MIN (>=60); GLUCOSE, SERUM 119 MG/DL (60-99); PHOSPHORUS, SERUM 4.2 MG/DL (2.5-4.5); POTASSIUM, SERUM 4.7 MMOL/L (3.5-5.3); SODIUM, SERUM 140 MMOL/L (135-148); TROPONIN I <0.02 NG/ML (<0.05)
[2017-03-15 08:59] LABS: CO2 (CARBON DIOXIDE) 30 MMOL/L (24-34)
[2017-03-15 09:00] LABS: CALCIUM, SERUM 9.6 MG/DL (8.5-10.4)
[2017-03-15] MEDS ORDERED: CEFT5 PO (17:02)
[2017-05-24] MEDS ORDERED: ADVAIR250 INH (13:03)
[2017-05-24] MEDS ORDERED: XANAX1 MG PO (13:04)
[2017-05-24] MEDS ORDERED: COMBIVENT RESPIM4 GM PO (13:04)
[2017-05-24] MEDS ORDERED: CYMBALTA60 PO (13:05)
[2017-05-24] MEDS ORDERED: ASAB PO (13:05)
[2017-05-24] MEDS ORDERED: ESTRADIOL2 MG PO (13:05)
[2017-05-24] MEDS ORDERED: NEUR300 PO (13:06)
[2017-05-24] MEDS ORDERED: L40 PO (13:06)
[2017-05-24] MEDS ORDERED: HUMALOG SC (13:06)
[2017-05-24] MEDS ORDERED: DUONEB INH (13:07)
[2017-05-24] MEDS ORDERED: LANTUS SC (13:07)
[2017-05-24] MEDS ORDERED: LEVOTHROID25 MCG PO (13:07)
[2017-05-24] MEDS ORDERED: NITROSTAT0.4 MG SL (13:08)
[2017-05-24] MEDS ORDERED: ZOFRAN8 PO (13:08)
[2017-05-24] MEDS ORDERED: MOBIC7.5 PO (13:08)
[2017-05-24] MEDS ORDERED: PERCOCET 10/3251 TAB PO (13:09)
[2017-05-24] MEDS ORDERED: SPIRO50 PO (13:09)
[2017-05-24] MEDS ORDERED: P125 PO (13:09)
[2017-05-24] MEDS ORDERED: KDUR10 PO (13:09)
[2017-05-24] MEDS ORDERED: ZANAFLEX 4 MG TA4 MG PO (13:09)
[2017-05-24] MEDS ORDERED: MSCONT15 PO (13:14)
[2017-06-23] MEDS ORDERED: P125 PO (18:58)
[2017-06-23] MEDS ORDERED: IBU-200200 MG PO (19:00)
[2017-06-26] MEDS ORDERED: K250 PO (15:46)
[2017-06-26] MEDS ORDERED: INSNOV7030 SC ×2 (15:50→15:52)
[2017-06-26] MEDS ORDERED: AZO-STANDARD95 MG PO (15:55)
== END 2017-03-15 18:15 | disposition home or self-care (01) | DRG 683 ==
LOC: ER 22:18 → 5SO 03-12 09:00
PROVIDERS: Emergency Medicine; Internal Medicine; Specialist
DX: N17.9 Acute kidney failure, unspecified (principal); E87.2 Acidosis; I50.32 Chronic diastolic (congestive) heart failure; N10 Acute pyelonephritis; F11.20 Opioid dependence, uncomplicated; Z68.42 Body mass index [BMI] 45.0-49.9, adult; E66.01 Morbid (severe) obesity due to excess calories; G47.33 Obstructive sleep apnea (adult) (pediatric); Z85.42 Personal history of malignant neoplasm of other parts of uterus; Z90.49 Acquired absence of other specified parts of digestive tract; Z98.890 Other specified postprocedural states; Z90.5 Acquired absence of kidney; J44.9 Chronic obstructive pulmonary disease, unspecified; E03.9 Hypothyroidism, unspecified; G89.29 Other chronic pain; Z80.0 Family history of malignant neoplasm of digestive organs; Z80.1 Family history of malignant neoplasm of trachea, bronchus and lung; F17.210 Nicotine dependence, cigarettes, uncomplicated; Z79.899 Other long term (current) drug therapy; Z87.440 Personal history of urinary (tract) infections; E86.0 Dehydration; E11.9 Type 2 diabetes mellitus without complications; Z79.4 Long term (current) use of insulin
CPT/HCPCS: 74176; 78451; 78492; 80048; 80053; 81001; 82962; 83605; 83690; 83735; 84100; 84145; 84484; 85025; 87040; 87086; 93005; 93017; 94640; 96374; 96375; 99285; A9270-GY; A9555; J2405; J2785; J3010

== ENCOUNTER 2017-05-07 12:07 | Emergency (ER) | payer OTHER ==
[~2017-05-07 12:07] MED LIST changes: +CYMBALTA60 PO; +L40 PO; +MSCONT15 PO
[2017-05-07 12:28] LABS: BASOPHILS 0.4 %; BASOPHILS ABSOLUTE 0.05 10/3/uL (0.0-0.16); EOSINOPHILS 1.8 %; EOSINOPHILS ABSOLUTE 0.22 10/3/uL (0.0-0.53); ER CBC TAT 0 Hrs 16 Mins; HEMATOCRIT 46.2 % (36.0-48.0); HEMOGLOBIN 14.8 g/dL (12.0-16.0); IMMATURE GRANULOCYTES 0.6 %; IMMATURE GRANULOCYTES ABSOLUTE 0.07 10/3/uL (0.0-0.11); LYMPHOCYTES 17.1 %; LYMPHOCYTES ABSOLUTE 2.11 10/3/uL (0.67-4.30); MEAN CORPUSCULAR HEMOGLOB 30.9 pg (26.0-34.0); MEAN CORPUSCULAR VOLUME 96.5 fL (80-100); MEAN PLATELET VOLUME 10.1 fL (9.2-13.0); MONOCYTES 3.9 %; MONOCYTES ABSOLUTE 0.48 10/3/uL (0.21-1.20); NEUTROPHILS 76.2 %; NUCLEATED RED BLOOD CELLS 0.8 /100WBC (0-0); PLATELET COUNT 258 10/3/uL (150-400); RBC DISTRIBUTION WIDTH 15.9 % (12.0-16.0); RED CELL COUNT 4.79 10/6/uL (4.0-5.6); WHITE BLOOD CELLS 12.3 10/3/uL (4.5-10.5)
[2017-05-07 12:29] LABS: MANUAL DIFF NO %
[2017-05-07 12:32] LABS: INTERNATIONAL NORMAL RATI 1.1 UNITS (-); PROTIME (NOT ORD) 14.2 SEC (12.0-14.5)
[2017-05-07 12:33] LABS: PARTIAL THROMBO TIME 34.3 SEC (22.5-37.2)
[2017-05-07 12:41] LABS: BUN (BLOOD UREA NITROGEN) 22 MG/DL (6-23); CALCIUM, SERUM 8.8 MG/DL (8.5-10.4); CHEST PAIN PROFILE TAT 0 Hrs 29 Mins; CHLORIDE, SERUM 91 MMOL/L (96-112); CO2 (CARBON DIOXIDE) 36 MMOL/L (24-34); CREATININE 1.94 MG/DL (0.55-1.02); GFR AFRICAN AMERICAN 34 ML/MIN (>=60); GFR NON AFRICAN AMERICAN 30 ML/MIN (>=60); GLUCOSE, SERUM 313 MG/DL (60-99); POTASSIUM, SERUM 3.5 MMOL/L (3.5-5.3); SODIUM, SERUM 134 MMOL/L (135-148); TROPONIN I 0.02 NG/ML (<0.05)
[2017-05-24] MEDS ORDERED: ADVAIR250 INH (13:03)
[2017-05-24] MEDS ORDERED: XANAX1 MG PO (13:04)
[2017-05-24] MEDS ORDERED: COMBIVENT RESPIM4 GM PO (13:04)
[2017-05-24] MEDS ORDERED: ASAB PO (13:05)
[2017-05-24] MEDS ORDERED: ESTRADIOL2 MG PO (13:05)
[2017-05-24] MEDS ORDERED: CYMBALTA60 PO (13:05)
[2017-05-24] MEDS ORDERED: NEUR300 PO (13:06)
[2017-05-24] MEDS ORDERED: HUMALOG SC (13:06)
[2017-05-24] MEDS ORDERED: L40 PO (13:06)
[2017-05-24] MEDS ORDERED: DUONEB INH (13:07)
[2017-05-24] MEDS ORDERED: LANTUS SC (13:07)
[2017-05-24] MEDS ORDERED: LEVOTHROID25 MCG PO (13:07)
[2017-05-24] MEDS ORDERED: ZOFRAN8 PO (13:08)
[2017-05-24] MEDS ORDERED: NITROSTAT0.4 MG SL (13:08)
[2017-05-24] MEDS ORDERED: MOBIC7.5 PO (13:08)
[2017-05-24] MEDS ORDERED: ZANAFLEX 4 MG TA4 MG PO (13:09)
[2017-05-24] MEDS ORDERED: KDUR10 PO (13:09)
[2017-05-24] MEDS ORDERED: PERCOCET 10/3251 TAB PO (13:09)
[2017-05-24] MEDS ORDERED: P125 PO (13:09)
[2017-05-24] MEDS ORDERED: SPIRO50 PO (13:09)
[2017-05-24] MEDS ORDERED: MSCONT15 PO (13:14)
[2017-06-23] MEDS ORDERED: P125 PO (18:58)
[2017-06-23] MEDS ORDERED: IBU-200200 MG PO (19:00)
[2017-06-26] MEDS ORDERED: K250 PO (15:46)
[2017-06-26] MEDS ORDERED: INSNOV7030 SC ×2 (15:50→15:52)
[2017-06-26] MEDS ORDERED: AZO-STANDARD95 MG PO (15:55)
== END 2017-05-07 15:12 | disposition home or self-care (01) ==
LOC: ER 12:07
PROVIDERS: Physician Assistant
DX: N17.9 Acute kidney failure, unspecified (principal); E10.65 Type 1 diabetes mellitus with hyperglycemia; J44.9 Chronic obstructive pulmonary disease, unspecified; I50.9 Heart failure, unspecified; F17.210 Nicotine dependence, cigarettes, uncomplicated; E66.01 Morbid (severe) obesity due to excess calories; Z88.6 Allergy status to analgesic agent; Z88.8 Allergy status to other drugs, medicaments and biological substances; Z79.899 Other long term (current) drug therapy; Z79.4 Long term (current) use of insulin
CPT/HCPCS: 71010; 80048; 83735; 83880; 84484; 85025; 85610; 85730; 93005; 94640; 99285; A9270-GY

== ENCOUNTER 2017-07-22 00:09 | Emergency (ER) | payer OTHER ==
[~2017-07-22 00:09] MED LIST changes: +ASAB PO; +AZO-STANDARD95 MG PO; +COMBIVENT RESPIM4 GM PO; +IBU-200200 MG PO; +INSNOV7030 SC; +K250 PO; +KDUR10 PO; +LEVOTHROID25 MCG PO; +P125 PO; +XANAX1 MG PO
== END 2017-07-22 02:38 | disposition left against medical advice (07) ==
LOC: ER 00:09
DX: T50.991A Poisoning by other drugs, medicaments and biological substances, accidental (unintentional), initial encounter (principal); G47.30 Sleep apnea, unspecified; J44.9 Chronic obstructive pulmonary disease, unspecified; I50.9 Heart failure, unspecified; E11.9 Type 2 diabetes mellitus without complications; Z85.528 Personal history of other malignant neoplasm of kidney; Z85.42 Personal history of malignant neoplasm of other parts of uterus; Z90.710 Acquired absence of both cervix and uterus; Z88.6 Allergy status to analgesic agent; Z88.8 Allergy status to other drugs, medicaments and biological substances; Z79.82 Long term (current) use of aspirin; Z79.4 Long term (current) use of insulin; Z79.899 Other long term (current) drug therapy; F13.129 Sedative, hypnotic or anxiolytic abuse with intoxication, unspecified
CPT/HCPCS: 71010; 93005; 94640; 99284